=== PATIENT | female | born 1995 | race African-American/Black ===

== ENCOUNTER 2021-10-07 21:39 | Emergency (ER) ==
[~2021-10-07] VITALS: Ht 165.1 cm; Wt 71.2 kg
[2021-10-07 21:41] VITALS: BP 130/79
[2021-10-07 22:42] LABS: RSV AMPLIFICATION NEGATIVE (NEGATIVE)
[2021-10-08] MEDS ORDERED: VENTAER INH (10:42)
== END 2021-10-07 23:12 | disposition left against medical advice (07) ==
LOC: M ED 21:39
DX: Z53.29 Procedure and treatment not carried out because of patient's decision for other reasons (principal)

== ENCOUNTER 2021-10-08 07:49 | Emergency (ER) | payer OTHER ==
[~2021-10-08] VITALS: Ht 165.1 cm; Wt 68.2 kg
[2021-10-08] MEDS ORDERED: VENTAER INH (10:42)
[2021-10-08 10:53] VITALS: BP 117/62
== END 2021-10-08 10:54 | disposition home or self-care (01) ==
LOC: M ED 07:49
DX: J45.909 Unspecified asthma, uncomplicated (principal)
CPT/HCPCS: 87880; 99283; U0003